=== PATIENT | female | born 1975 | race American Indian/Alaskan Native ===

== ENCOUNTER 2016-07-30 11:33 | Emergency (ER) | payer BC ==
[2016-07-30 11:33] VITALS: BMI 29.0
[2016-07-30 11:37] VITALS: BP 119/77; PULSE 92; RESP 18; TEMP 98.3; O2SAT 99
--- NOTE | 2016-07-30 12:06 | C.PDOC ---
History Of Present Illness 40 y/o F c no PMHx p/w R arm paresthesia x 2 weeks. Feels pins and needles and sometimes burning feeling to R forearm down to R 4th digit. Denies injury, rash , fever, weakness. Time Seen by Provider: 07/30/16 11:41 Chief Complaint (Nursing): Upper Extremity Problem/Injury Past Medical History Vital Signs: Last Vital Signs Temp 98.3 F 07/30/16 11:36 Pulse 92 H 07/30/16 11:36 Resp 18 07/30/16 11:36 BP 119/77 07/30/16 11:36 Pulse Ox 99 07/30/16 11:36 Family History: States: Unknown Family Hx - Social History Hx Alcohol Use: No Hx Substance Use: No - Immunization History Hx Tetanus Toxoid Vaccination: Yes Hx Influenza Vaccination: Yes Hx Pneumococcal Vaccination: Yes Review Of Systems Except As Marked, All Systems Reviewed And Found Negative. Constitutional: Negative for: Fever Cardiovascular: Negative for: Chest Pain Respiratory: Negative for: Shortness of Breath Physical Exam - Physical Exam Additional Physical Exam Comments: Subjective paresthesia to 4th R digit. Motor 5/5 in R arm. No rash to arm. ED Course And Treatment O2 Sat by Pulse Oximetry: 99 Medical Decision Making Medical Decision Making: Will check fingerstick to assess for diabetic neuropathy. Otherwise, more likely peripheral neuropathy, ulnar vs carpal tunnel? Instructed to take NSAIDs , f/u PMD and Ortho vs PM&R for further evaluation and treatment. Disposition - Disposition Referrals: Loc Mims MD [Staff Provider] - Disposition: HOME/ ROUTINE Disposition Time: 12:09 Condition: STABLE Instructions: Peripheral Neuropathy (ED) Forms: Work Excuse - Clinical Impression Clinical Impression: Peripheral neuropathy
== END 2016-07-30 12:31 | disposition home or self-care (01) ==
LOC: C.ER 11:33
DX: G62.9 Polyneuropathy, unspecified (principal)
CPT/HCPCS: 82948; 96372; 99283; J1885

== ENCOUNTER 2017-05-19 10:19 | Emergency (ER) | payer BC ==
[2017-05-19 10:19] VITALS: BMI 29.0
[2017-05-19 10:26] VITALS: BP 127/76; PULSE 111; TEMP 99.4
--- NOTE | 2017-05-19 10:52 | C.PDOC ---
History Of Present Illness 41-year-old female, presents to the emergency department with complaints of sore throat, subjective fever, and cough for the past week. Denies nausea/ vomiting. No sick contacts Time Seen by Provider: 05/19/17 10:51 Chief Complaint (Nursing): Flu-like Symptoms Past Medical History Reviewed: Historical Data, Nursing Documentation, Vital Signs Vital Signs: Last Vital Signs Temp 99.4 F 05/19/17 10:23 Pulse 111 H 05/19/17 10:23 Resp 20 05/19/17 10:23 BP 127/76 05/19/17 10:23 Pulse Ox 98 05/19/17 17:17 Family History: States: Unknown Family Hx - Social History Hx Alcohol Use: No Hx Substance Use: No - Immunization History Hx Tetanus Toxoid Vaccination: Yes Hx Influenza Vaccination: Yes Hx Pneumococcal Vaccination: Yes Review Of Systems Except As Marked, All Systems Reviewed And Found Negative. Constitutional: Positive for: Fever ENT: Positive for: Throat Pain Respiratory: Positive for: Cough. Negative for: Shortness of Breath Gastrointestinal: Negative for: Vomiting Neurological: Negative for: Weakness Physical Exam - Physical Exam Appears: Non-toxic, No Acute Distress Skin: Warm, Dry Head: Atraumatic, Normacephalic Nose: Normal Oral Mucosa: Moist Lips: Normal Appearing Throat: Erythema, No Exudate (Uvula midline. Tonsils symmetric) Neck: Normal ROM, Supple Cardiovascular: Rhythm Regular, No Murmur Respiratory: Normal Breath Sounds, No Accessory Muscle Use Extremity: Normal ROM Neurological/Psych: Oriented x3, Normal Speech ED Course And Treatment O2 Sat by Pulse Oximetry: 98 (RA) Pulse Ox Interpretation: Normal Interpretation Of Abnormal: Pulse Ox 20 was error. It was normal (98) at all times. Disposition - Disposition Referrals: [facility] at [facility] [Outside] Disposition: HOME/ ROUTINE Disposition Time: 11:01 Condition: GOOD Additional Instructions: Please follow up with your doctor. Return to the ER for any worsening symptoms or for any other concerns. Prescriptions: Lidocaine 2% Viscous 15 ml MM Q6H PRN #100 ml PRN Reason: Sore Throat Prednisone [Deltasone] 40 mg PO DAILY #4 tablet Forms: General Discharge Instructions, [facility] (Austrian), Work Excuse - Clinical Impression Clinical Impression: Upper respiratory infection - Scribe Statement The provider has reviewed the documentation as recorded by the Scribe (Lucía Mims) All medical record entries made by the Scribe were at my direction and personally dictated by me. I have reviewed the chart and agree that the record accurately reflects my personal performance of the history, physical exam, medical decision making, and the department course for this patient. I have also personally directed, reviewed, and agree with the discharge instructions and disposition.
[2017-05-19 10:54] VITALS: RESP 20
[2017-05-19 17:17] VITALS: O2SAT 98
== END 2017-05-19 11:22 | disposition home or self-care (01) ==
LOC: C.ER 10:19
DX: J06.9 Acute upper respiratory infection, unspecified (principal)

== ENCOUNTER 2018-08-17 21:58 | Observation (INO) | payer BC ==
[2018-08-17 21:58] VITALS: BMI 29.0
[2018-08-17] MEDS ORDERED: Aspirin 325 mg EC Tablets PO STA (22:42)
--- NOTE | 2018-08-17 22:42 | C.PDOC ---
History Of Present Illness Patient presents to the ED c/o chest tightness while at rest. Patient reports feeling pins and needles sensation in her sternal area. Patient able to speak in complete sentences and tolerating PO. Patient denies fever, chills, nausea, vomit, diarrhea, SOB, palpitations, rash, weakness, numbness. Time Seen by Provider: 08/17/18 22:41 Chief Complaint (Nursing): Chest Pain History Per: Patient History/Exam Limitations: no limitations Onset/Duration Of Symptoms: Hrs Current Symptoms Are (Timing): Still Present Quality: Tightness Recent travel outside of the [place]: No Additional History Per: Patient Past Medical History Reviewed: Historical Data, Nursing Documentation, Vital Signs Vital Signs: Last Vital Signs Temp 98.2 F 08/17/18 22:11 Pulse 90 08/17/18 22:11 Resp 16 08/17/18 22:11 BP 110/74 08/17/18 22:11 Pulse Ox 98 08/17/18 22:11 - Medical History PMH: No Chronic Diseases Surgical History: No Surg Hx Family History: States: Unknown Family Hx - Social History Hx Alcohol Use: No Hx Substance Use: No - Immunization History Hx Tetanus Toxoid Vaccination: Yes Hx Influenza Vaccination: Yes Hx Pneumococcal Vaccination: Yes Review Of Systems Constitutional: Negative for: Fever, Chills Cardiovascular: Positive for: Chest Pain (tightness) Respiratory: Negative for: Cough, Shortness of Breath Gastrointestinal: Negative for: Nausea, Vomiting, Abdominal Pain Skin: Negative for: Rash Neurological: Negative for: Weakness, Numbness, Headache Physical Exam - Physical Exam Appears: Non-toxic, No Acute Distress Skin: Warm, Dry Head: Normacephalic Eye(s): bilateral: Normal Inspection Oral Mucosa: Moist Neck: Supple Chest: Symmetrical, No Tenderness Cardiovascular: Rhythm Regular Respiratory: No Rales, No Rhonchi, No Wheezing Gastrointestinal/Abdominal: Soft, No Tenderness, No Guarding, No Rebound Extremity: Bilateral: Atraumatic, Normal Color And Temperature, Normal ROM Neurological/Psych: Oriented x3, Normal Speech, Normal Cognition Gait: Steady ED Course And Treatment - Laboratory Results Result Diagrams: 08/17/18 23:07 08/17/18 23:07 O2 Sat by Pulse Oximetry: 98 (On RA) Pulse Ox Interpretation: Normal Progress Note: Plan: - EKG. - Labs. - Aspirin 325 mg PO. - UA Disposition Discussed With Dr.: Lamont Munroe Comment: accepted the pt on his service and took over the care at 12:42 AM Doctor Will See Patient In The: Hospital Counseled Patient/Family Regarding: Studies Performed, Diagnosis - Disposition Disposition: HOSPITALIZED Disposition Time: 22:41 Condition: FAIR Forms: [facility] (Qatari) - POA Present On Arrival: None - Clinical Impression Clinical Impression: Chest pain - Scribe Statement The provider has reviewed the documentation as recorded by the Scribe Jose F Garcia All medical record entries made by the Scribe were at my direction and personally dictated by me. I have reviewed the chart and agree that the record accurately reflects my personal performance of the history, physical exam, medical decision making, and the department course for this patient. I have also personally directed, reviewed, and agree with the discharge instructions and disposition. Decision To Admit - Pt Status Changed To: Hospital Disposition Of: Observation - . Bed Request Type: Telemetry Admitting Physician: Lamont Munroe Patient Diagnosis: Chest pain
[2018-08-17] MEDS ORDERED: Aspirin 325 mg EC Tablets PO ONE (23:09)
[2018-08-17 23:10] LABS: BASO % 0.5 % (0.0-2.0); EOS # 0.1 K/uL (0.0-0.7); EOS % 2.4 % (0.0-4.0); HEMOGLOBIN 11.9 g/dL (11.0-16.0); LYMPH # 2.9 K/uL (1.0-4.3); LYMPH % 45.8 % (20.0-40.0); MEAN CELL VOLUME 86.8 fL (81.0-99.0); MEAN CORPUSCULAR HEMOGLOBIN 28.4 pg (27.0-31.0); MEAN CORPUSCULAR HGB CONC 32.7 g/dL (33.0-37.0); MEAN PLATELET VOLUME 10.1 fL (7.2-11.7); MONO # 0.3 K/uL (0.0-0.8); MONO % 5.4 % (0.0-10.0); NEUT # 2.9 K/uL (1.8-7.0); NEUT % 45.9 % (50.0-75.0); NRBC % 0.2 % (0.0-2.0); RBC 4.17 Mil/uL (3.80-5.20); RED CELL DISTRIBUTION WIDTH 14.6 % (11.5-14.5); WHITE BLOOD COUNT 6.3 K/uL (4.8-10.8)
[2018-08-17 23:11] LABS: SQUAMOUS EPITHIAL 2 /hpf (0-5); URINE BACTERIA FEW (<OCC); URINE BILIRUBIN NEGATIVE (NEGATIVE); URINE BLOOD 1+ (NEGATIVE); URINE CLARITY Hazy (Clear); URINE COLOR Yellow (YELLOW); URINE GLUCOSE (UA) NORMAL (Normal); URINE LEUKOCYTE ESTERASE TRACE Leu/uL (Negative); URINE PROTEIN NEGATIVE (NEGATIVE)
[2018-08-17 23:12] LABS: HCG,QUALITATIVE URINE NEGATIVE (NEGATIVE)
[2018-08-17 23:20] LABS: INR 1.1; PROTHROMBIN TIME 12.5 SECONDS (9.7-12.2)
[2018-08-17 23:22] LABS: ALB/GLOB RATIO 1.4 (1.0-2.1); ALBUMIN 4.5 g/dL (3.5-5.0); BLOOD UREA NITROGEN 13 mg/dL (7-17); CALCIUM 9.5 mg/dl (8.6-10.4); GFR NON-AFRICAN AMERICAN > 60; LIPASE 55 U/L (23-300)
[2018-08-17 23:27] LABS: ALT/SGPT 18 U/L (9-52); AST/SGOT 27 U/L (14-36)
[2018-08-17 23:34] LABS: B-TYPE NATRIURETIC PEPTIDE 18.8 pg/mL (0-450)
[2018-08-18 07:12] LABS: CK-MB 0.25 ng/mL (0.0-3.38)
[2018-08-18 10:20] LABS: HDL CHOLESTEROL 49 mg/dL (30-70)
[2018-08-18 10:31] LABS: LDL CHOLESTEROL 99 mg/dL (0-129)
[2018-08-18 14:40] LABS: CK-MB 0.26 ng/mL (0.0-3.38)
--- NOTE | 2018-08-18 17:46 | CARD ---
APPROVED REPORT Date of service: 08/18/2018 EXAM: Two-dimensional and M-mode echocardiogram with Doppler and color Doppler. Other Information Quality : GoodRhythm : INDICATION Chest Pain 2D DIMENSIONS IVSd0.7 (0.7-1.1cm)LVDd4.1 (3.9-5.9cm) PWd0.9 (0.7-1.1cm)LA Gorzvx27 (18-58mL) LVDs2.8 (2.5-4.0cm)FS (%) 31.2 % LVEF (%)65.0 (>50%)LVEF (Banks's)70.40 % IVC0.00 cm M-Mode DIMENSIONS RVDd2.32 (2.1-3.2cm)Left Atrium (MM)2.96 (2.5-4.0cm) IVSd0.78 (0.7-1.1cm)Aortic Root2.44 (2.2-3.7cm) LVDd4.32 (4.0-5.6cm)Aortic Cusp Exc.2.02 (1.5-2.0cm) PWd0.76 (0.7-1.1cm)FS (%) 46 % LVDs2.34 (2.0-3.8cm)LVEF (%)75 (>50%) Mitral Valve MV E Khlzvdti82.1cm/sMV A Qasqrjbc84.5cm/sE/A ratio1.6 BSTU681.84 cm/s TDI Lateral E' Peak V18.35cm/sMedial E' Peak V14.87cm/sE/Lateral E'5.2 E/Medial E'6.5 Tricuspid Valve TR Peak Tzztfnor835gs/sTR Peak Gr.06hwOwTVNL02quBa LEFT VENTRICLE The left ventricle is normal size. There is normal left ventricular wall thickness. The left ventricular function is normal. The left ventricular ejection fraction is within the normal range. There is normal LV segmental wall motion. The left ventricular diastolic function is normal. RIGHT VENTRICLE The right ventricle is normal size. There is normal right ventricular wall thickness. The right ventricular systolic function is normal. ATRIA The left atrium size is normal. The right atrium size is normal. AORTIC VALVE The aortic valve is normal in structure. No aortic regurgitation is present. There is no aortic valvular stenosis. MITRAL VALVE The mitral valve is moderately thickened. There is no mitral valve stenosis. Mitral regurgitation is trace. TRICUSPID VALVE There is mild tricuspid regurgitation. PULMONIC VALVE There is mild pulmonic valvular regurgitation. GREAT VESSELS The aortic root is normal in size. The IVC collapses <50% with inspiration. <Conclusion> The left ventricle is normal size. There is normal left ventricular wall thickness. The left ventricular function is normal. The left ventricular ejection fraction is within the normal range. There is normal LV segmental wall motion. The left ventricular diastolic function is normal. The mitral valve is moderately thickened. There is mild tricuspid regurgitation. There is mild pulmonic valvular regurgitation.
--- NOTE | 2018-08-19 02:35 | HP ---
HISTORY OF PRESENT ILLNESS: This is a 42-year-old female with no significant past medical history, presented to emergency room with symptoms of chest pain that started few hours prior to admission. The patient was seen in the emergency room, and due to the continued tightness in the chest, the patient was admitted for further management. The patient denied to have any shortness of breath or palpitations. The patient denied to have any similar episodes before. The patient stated that she had the chest pain while she was relaxed. The patient has positive family history of ischemic heart disease in grandmother and aunt. Other review of systems is negative. ALLERGIES: NO KNOWN ALLERGIES. MEDICATIONS: None. PAST MEDICAL HISTORY: Not significant. SOCIAL HISTORY: No history of smoking, EtOH or substance abuse. FAMILY HISTORY: As above. PHYSICAL EXAMINATION: GENERAL: The patient is not in any cardiopulmonary distress. VITAL SIGNS: Blood pressure 97/64, temperature 98.2, respiratory rate 20, and pulse 69. HEENT: Pupils equal, reactive to light. Normal-appearing mucosa of the conjunctivae, oropharynx and nasal membrane mucosa. NECK: Supple. No JVD, no carotid bruit. No lymph node. No thyromegaly. CHEST AND LUNGS: Bilateral symmetrical expansion. Good air exchange. No rales, no rhonchi. CARDIOVASCULAR SYSTEM: PMI not localized. S1, S2. No additional sounds. ABDOMEN: Normoactive bowel sounds. No tenderness. No organomegaly. No masses. EXTREMITIES: No cyanosis, no clubbing, no edema. GROUP HOME MANAGER: Alert, awake, oriented x3. No neurological deficit could be appreciated. ASSESSMENT: Chest pain, rule out acute coronary syndrome. PLAN: Cardiology consult. Echocardiogram. Continue aspirin. Lipid profile and hemoglobin A1c. Lamont Munroe MD
--- NOTE | 2018-08-19 07:16 | CP.PCM.CON ---
History of Present Illness - History of Present Illness History of Present Illness: CC: Chest Pain Patient presents to the ED c/o chest tightness while at rest. Patient reports feeling pins and needles sensation in her sternal area. Patient able to speak in complete sentences and tolerating PO. Patient denies fever, chills, nausea, vomit, diarrhea, SOB, palpitations, rash, weakness, numbness. Chief Complaint (Nursing): Chest Pain History Per: Patient History/Exam Limitations: no limitations Onset/Duration Of Symptoms: Hrs Current Symptoms Are (Timing): Still Present Quality: Tightness Recent travel outside of the [place]: No Additional History Per: Patient - Medical History PMH: No Chronic Diseases Surgical History: No Surg Hx Family History: States: Unknown Family Hx - Social History Hx Alcohol Use: No Hx Substance Use: No - Immunization History Hx Tetanus Toxoid Vaccination: Yes Hx Influenza Vaccination: Yes Hx Pneumococcal Vaccination: Yes Review Of Systems Constitutional: Negative for: Fever, Chills Cardiovascular: Positive for: Chest Pain (tightness) Respiratory: Negative for: Cough, Shortness of Breath Gastrointestinal: Negative for: Nausea, Vomiting, Abdominal Pain Skin: Negative for: Rash Neurological: Negative for: Weakness, Numbness, Headache Physical Exam - Physical Exam Appears: Non-toxic, No Acute Distress Skin: Warm, Dry Head: Normacephalic Eye(s): bilateral: Normal Inspection Oral Mucosa: Moist Neck: Supple Chest: Symmetrical, No Tenderness Cardiovascular: Rhythm Regular Respiratory: No Rales, No Rhonchi, No Wheezing Gastrointestinal/Abdominal: Soft, No Tenderness, No Guarding, No Rebound Extremity: Bilateral: Atraumatic, Normal Color And Temperature, Normal ROM Neurological/Psych: Oriented x3, Normal Speech, Normal Cognition Gait: Steady Past Patient History - Past Social History Smoking Status: Never Smoked - PSYCHIATRIC Hx Substance Use: No - SURGICAL HISTORY Hx Surgeries: No - ANESTHESIA Hx Anesthesia: No Hx Anesthesia Reactions: No Meds Allergies/Adverse Reactions: Allergies Allergy/AdvReac Type Severity Reaction Status Date / Time No Known Allergies Allergy Verified 08/17/18 22:17 - Medications Medications: Current Medications Aspirin (Aspirin Chewable) 81 mg PO DAILY [facility] Last Admin: 08/18/18 09:22 Dose: 81 mg Heparin Sodium (Porcine) (Heparin) 5,000 units SC Q12 [facility] Last Admin: 08/18/18 21:54 Dose: Not Given Results - Vital Signs Recent Vital Signs: Last Vital Signs Temp 97.9 F 08/18/18 23:20 Pulse 66 08/19/18 01:00 Resp 20 08/18/18 23:20 BP 92/52 L 08/18/18 23:20 Pulse Ox 100 08/18/18 23:20 - Labs Result Diagrams: 08/17/18 23:07 08/17/18 23:07 Labs: Laboratory Results - last 24 hr 08/18/18 08/18/18 08/18/18 06:36 09:59 13:58 Hemoglobin A1c 5.4 Total Creatine Kinase 85 103 CK-MB (Mass) 0.25 0.26 Troponin I < 0.0120 < 0.0120 Triglycerides 69 Cholesterol 154 LDL Cholesterol Direct 99 HDL Cholesterol 49 TSH 3rd Generation 3.04 Assessment & Plan - Assessment and Plan (Free Text) Assessment: 42 F with chest pain For stress test and ECHO in am
[2018-08-19] MEDS ORDERED: Caffeine Citrated **INJ** 20 MG/ML IV ONE (08:01)
--- NOTE | 2018-08-19 15:09 | CARD ---
APPROVED REPORT Date of service: 08/19/2018 Protocol: KANDI Test Type: NUCLEAR STRESS Test Indications: CP Medical History: CP Target HR: 179 bpm Resting ECG: normal Resting Heart Rate: 86 bpm Resting Blood Pressure: 118/78mmHg submaximum (85%): 152 bpm TEST SUMMARY PRETESTWARM-UP02:[id number]/78.0. EXERCISESTAGE 103:001.710.04.6141/.0. EXERCISESTAGE 203:[id number]/78.0. EXERCISESTAGE 300:[id number]/78.0. SZCWPIIL64:[id number]/78.0. POST EXERCISE Reason for Termination: Protocol Completed Target HR: No Max HR: 146 bpm 85% of Maximum Predicted HR: 179 bpm Exercise duration: 06:09 min:sec, 3 Stage Exercise capacity: 7.4METs Max Blood Pressure: 130/78mmHg Blood Pressure response to exercise: normal resting BP - appropriate response Heart Rate response to exercise: appropriate Chest Pain: No, none Angina index: 0 Arrhythmia: No, none ST Change: Yes, Depression upsloping Deviation: 0 mm INTERPRETATION Stress EKG Conclusion: Nuclear images to follow. EXAM: Myocardial Perfusion REST/STRESS Imaging Protocol The imaging protocol used to acquire images was Rest Tc-99m/stress Tc-99m 1 day Rest Spect myocardial perfusion imaging was performed in supine position 45 minutes following the injection of 13.1 mCi of Tc-99 Myoview. Gated Stress Spect was performed 45 minutes after intravenous 33.0 mCi Tc-99 Myoview injection. The images were gated to evaluate regional wall motion and calculate ventricular ejection fraction.Images were reconstructed using backfilter projection method in short horizontal and verticle long axis. Spect slices were generated. RESTING DATA EDV72.03rgAJ4.80L/min ESV15.00mlMyocardial Grbk909.00g Av. Heart Rate66.00bpm EF79.00% STRESS DATA EDV67.91cqIU9.40L/min ESV14.00mlMyocardial Iubi396.00g EF79.00% Regional WT score at stress:0.00 Regional WM score at stress:0.00 Summed WT score at stress:0.00 Av. Heart Rate64.00bpmSummed WM score at stress:0.00 LV Perf. Quant 17 Seg. SSS0.00 17 Seg. SRS0.00 17 Seg. SDS0.00 Stress Defect Extent (% LAD)0.00Rest Defect Extent (% LAD)0.00Rev. Defect Extent (% LAD)0.00 Stress Defect Extent (% LCX)0.00Rest Defect Extent (% LCX)0.00Rev. Defect Extent (% LCX)0.00 Stress Defect Extent (% RCA)0.00Rest Defect Extent (% RCA)0.00Rev. Defect Extent (% RCA)0.00 Stress Defect Extent (% YOAN)0.00Rest Defect Extent (% YOAN)0.00Rev. Defect Extent (% YOAN)0.00 Other Information Quality:Good Overall Exercise Capacity: Normal IMPRESSION Normal Myocardial Perfusion exercise stress study Left Ventricle LV Function:Left ventricle systolic function is normal. The Ejection Fraction is >70%. Metabolism/Perfusion There are no perfusion/metabolism defects. Conclusion 1. Normal Lexiscan Nuclear stress test
--- NOTE | 2018-08-19 15:17 | CARD ---
APPROVED REPORT Date of service: 08/17/2018 EKG Measurement Heart [id number] MT 126P68 [id number] <Conclusion> Normal sinus rhythm Normal ECG
[2018-08-19 16:27] VITALS: PULSE 78
[2018-08-19 16:35] VITALS: BP 94/59; RESP 18; TEMP 98.6; O2SAT 99
--- NOTE | 2018-08-19 16:43 | CP.PCM.PN ---
Subjective - Date & Time of Evaluation Date of Evaluation: 08/19/18 Time of Evaluation: 16:43 - Subjective Subjective: alert and orientedx3, no sob or chest pains, NAD. Objective - Vital Signs/Intake and Output Vital Signs (last 24 hours): Temp Pulse Resp BP Pulse Ox 97.9 F 72 20 92/52 L 100 08/18/18 23:20 08/19/18 08:22 08/18/18 23:20 08/18/18 23:20 08/18/18 23:20 - Medications Medications: Current Medications Aspirin (Aspirin Chewable) 81 mg PO DAILY [facility] Last Admin: 08/19/18 10:55 Dose: 81 mg Heparin Sodium (Porcine) (Heparin) 5,000 units SC Q12 [facility] Last Admin: 08/19/18 10:55 Dose: Not Given - Labs Labs: 08/17/18 23:07 08/17/18 23:07 PT 12.5 SECONDS (9.7-12.2) H 08/17/18 23:07 INR 1.1 08/17/18 23:07 APTT 35.0 SECONDS (21-34) H 08/17/18 23:07 Assessment and Plan - Assessment and Plan (Free Text) Assessment: 42 year old female admitted with chest pains, seen and examined. Alert and orientedx3, denies sob or chest pains. Cleared by DR Ricci, stress test negative, discussed with DR Munroe, plan to discharge home today. Advised to follow up in the office in 2 weeks.
--- NOTE | 2018-08-20 06:52 | DS ---
REASON FOR ADMISSION: This is a 42-year-old female who was admitted for chest pain. HOSPITAL COURSE: The patient was admitted for observation and myocardial infarction was ruled out by negative cardiac enzymes. The patient had cardiology consultation done by Dr. Ricci and she underwent nuclear imaging stress test. The patient's nuclear imaging stress test did not show any significant ischemia and the patient was discharged home in stable condition to continue a healthy lifestyle and low-cholesterol diet and exercise. Discussed with Dr. Ricci. Will follow up the patient as an outpatient. FINAL DIAGNOSIS: Atypical chest pain, noncardiac chest pain. [facility] MD Ludwig
== END 2018-08-19 16:52 | disposition home or self-care (01) ==
LOC: C.ER 21:58 → C.6T 08-18 00:37
PROVIDERS: ADMIT Internal Medicine; ATTEND Internal Medicine
DX: R07.89 Other chest pain (principal); Z82.49 Family history of ischemic heart disease and other diseases of the circulatory system
CPT/HCPCS: 36415; 78452; 80053; 80061; 81001; 83036; 83690; 83880; 84443; 84484; 84703; 85025; 85610; 85730; 93005; 93017; 93306; 99285; A9502; G0378